=== PATIENT | male | born 1985 | race Caucasian/White ===

== ENCOUNTER 2017-02-25 23:32 | Emergency (ER) | payer OTHER ==
[2017-02-25 23:43] VITALS: RESP 18
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
--- NOTE | 2017-02-26 00:40 | XR ---
EXAM: XR Right Shoulder Complete, 2 or More Views CLINICAL HISTORY: Reason: Pain TECHNIQUE: Two or more views of the right shoulder. COMPARISON: None. FINDINGS: Bones/joints: Unremarkable. No acute fracture. No dislocation. Soft tissues: Unremarkable. No calcification. IMPRESSION: Normal right shoulder x-rays.
[2017-02-26 00:59] VITALS: BP 132/61; PULSE 87; TEMP 98.2
== END 2017-02-26 00:59 | disposition home or self-care (01) ==
LOC: EC 23:32
DX: S40.011A Contusion of right shoulder, initial encounter (principal); R07.9 Chest pain, unspecified; F17.200 Nicotine dependence, unspecified, uncomplicated; Z88.8 Allergy status to other drugs, medicaments and biological substances; V47.5XXA Car driver injured in collision with fixed or stationary object in traffic accident, initial encounter; Y92.410 Unspecified street and highway as the place of occurrence of the external cause
CPT/HCPCS: 99283

== ENCOUNTER 2017-07-03 13:35 | Emergency (ER) | payer OTHER ==
[2017-07-03 13:40] VITALS: BP 121/78; PULSE 73; RESP 16; TEMP 97.8
[2017-07-03] MEDS ORDERED: PROPARACAINE 0.5% OPHTH DROPS 15 ML BTL LEFT EYE STA (13:51)
--- NOTE | 2017-07-03 14:04 | ED ---
General Adult HPI - General Chief complaint: Upper Respiratory Infection Stated complaint: Sore Throat/Eye Pain Time Seen by Provider: 07/03/17 13:44 Source: patient, RN notes reviewed Mode of arrival: ambulatory Limitations: no limitations - History of Present Illness Initial comments: This is a 32-year-old male who presents to the emergency department for evaluation of upper respiratory infection. Patient states that for the past 3 days he has had congestion, sore throat, headache and cough. He states that this morning when he awoke his left eye was crusted shut. He states that the eye has been tearing and is slightly itchy. Denies vision changes. Reports foreign body sensation but denies pain or photophobia. He states that his 2-year -old son has also been sick with upper respiratory infection. He has been taking NyQuil at night for the symptoms which has been helping. Patient states he has been coughing due to drainage in the back of his throat. He reports he had an episode of chills and nausea on night. Denies fever, chest pain , shortness of breath, abdominal pain, nausea or vomiting, constipation or diarrhea, dysuria or hematuria, numbness or tingling. - Related Data Home Medications Medication Instructions Recorded Confirmed No Known Home Medications [No 02/25/17 07/03/17 Known Home Medications] Allergies Allergy/AdvReac Type Severity Reaction Status Date / Time methylphenidate HCl Allergy Rash/Hives Verified 07/03/17 13:39 [From Ritalin] Review of Systems ROS Statement: Those systems with pertinent positive or pertinent negative responses have been documented in the HPI. ROS Other: All systems not noted in ROS Statement are negative. Past Medical History Past Medical History: Hyperlipidemia History of Any Multi-Drug Resistant Organisms: None Reported Past Surgical History: No Surgical Hx Reported Past Psychological History: No Psychological Hx Reported Smoking Status: Current every day smoker Past Alcohol Use History: Rare Past Drug Use History: None Reported General Exam - General Exam Comments Initial Comments: General: Awake and alert, well-developed; in no apparent distress. HEENT: Head atraumatic, normocephalic. Pupils are equal, round and reactive to light. Extraocular movements intact. Oropharynx moist without erythema or exudate. Left conjunctiva is mildly erythematous. On fluorescein staining, no abrasion or ulcers were identified. No crusting noted along eyelids. Bilateral maxillary and frontal sinuses are tender to palpation. Right TM unable to visualize due to cerumen impaction. Left TM is pearly without effusion. Neck: Supple. Normal ROM. Cardiovascular: Regular rate and rhythm. No murmurs, rubs or gallops. Chest symmetrical. Respiratory: Lungs clear to auscultation bilaterally. No wheezes, rales or rhonchi. Normal respiratory effort with no use of accessory muscles. Abdomen: Soft, non-tender, non-distended. No rigidity, rebound or guarding. Normal bowel sounds in all 4 quadrants. Skin: [place], warm and dry without rashes or lesions. Neurological: Alert and oriented x3. CN II-XII grossly intact. Speech is fluent and answers are appropriate. No focal neuro deficits. Psychiatric: Normal mood and affect. No overt signs of depression or anxiety noted. Limitations: no limitations Course Vital Signs 07/03/17 13:36 Temperature 97.8 F Pulse Rate 73 Respiratory 16 Rate Blood Pressure 121/78 O2 Sat by Pulse 97 Oximetry Medical Decision Making - Medical Decision Making This is a 32-year-old male who presents to the emergency department for evaluation of upper respiratory infection. Patient plans of nonproductive cough , sore throat, congestion and headache for the past 2 days. Patient awoke this morning with left eye redness, itchiness and crusting. Denies vision changes. On fluorescein staining, no abrasion or ulcer was noted. Lungs are clear to auscultation bilaterally. Oropharynx is non-erythematous and without exudate. Patient will be discharged home with antibiotic eyedrops. He is in agreement with plan and voices understanding. All questions were answered. Disposition Clinical Impression: Upper respiratory infection, Conjunctivitis Disposition: HOME SELF-CARE Condition: Good Instructions: Upper Respiratory Infection (ED), Conjunctivitis (ED), Tobramycin (Into the eye) Additional Instructions: Please instill 1-2 drops in affected eye every 4 hours for 5 days. Please follow up with primary care provider within 1-2 days. Return to emergency department if symptoms should worsen or any concerns arise. Referrals: Klever Boyer DO [Primary Care Provider] - 1-2 days Time of Disposition: 14:12
[2017-07-03] MEDS ORDERED: TOBRAMYCIN 0.3% OPHTH DROPS 5 ML BTL LEFT EYE STA (14:07)
== END 2017-07-03 14:22 | disposition home or self-care (01) ==
LOC: EC 13:35
DX: J06.9 Acute upper respiratory infection, unspecified (principal); H10.9 Unspecified conjunctivitis; F17.200 Nicotine dependence, unspecified, uncomplicated; Z88.8 Allergy status to other drugs, medicaments and biological substances
CPT/HCPCS: 99283

== ENCOUNTER 2019-05-27 18:01 | Emergency (ER) | payer BC, OTHER ==
[2019-05-27] MEDS ORDERED: ACETAMINOPHEN TAB 500 MG TAB PO STA (18:37)
--- NOTE | 2019-05-27 18:43 | ED ---
General Adult HPI - General Chief complaint: Upper Respiratory Infection Stated complaint: FLU LIKE SYMPTOMS Time Seen by Provider: 05/27/19 18:26 Source: patient, RN notes reviewed Mode of arrival: ambulatory Limitations: no limitations - History of Present Illness Initial comments: 34-year-old male with a past medical history of hyperlipidemia who presents to the emergency department for a chief complaint of body aches. Patient states he has had body aches and chills all day. States he has a cough congestion and sore throat. Patient was unaware that he had a fever until presenting to the emergency department. Denies nausea vomiting. Denies any immunocompromised states.Patient has no other complaints at this time including shortness of robbin ath, chest pain, abdominal pain, nausea or vomiting, headache, or visual changes. - Related Data Previous Rx's Medication Instructions Recorded Ciprofloxacin HCl [Cipro] 500 mg PO BID 7 Days #14 tab 05/27/19 Allergies Allergy/AdvReac Type Severity Reaction Status Date / Time methylphenidate HCl Allergy Rash/Hives Verified 05/27/19 18:26 [From Robel] Review of Systems ROS Statement: Those systems with pertinent positive or pertinent negative responses have been documented in the HPI. ROS Other: All systems not noted in ROS Statement are negative. Past Medical History Past Medical History: Hyperlipidemia History of Any Multi-Drug Resistant Organisms: None Reported Past Surgical History: No Surgical Hx Reported Past Psychological History: No Psychological Hx Reported Smoking Status: Current every day smoker Past Alcohol Use History: Rare Past Drug Use History: None Reported General Exam Limitations: no limitations General appearance: alert, in no apparent distress Head exam: Present: atraumatic, normocephalic, normal inspection Eye exam: Present: normal appearance, PERRL, EOMI. Absent: scleral icterus, conjunctival injection, periorbital swelling ENT exam: Present: normal exam, normal oropharynx, mucous membranes moist, TM's normal bilaterally, normal external ear exam Neck exam: Present: normal inspection, full ROM. Absent: tenderness, meningismus, lymphadenopathy Respiratory exam: Present: normal lung sounds bilaterally, other (Dry cough). Absent: respiratory distress, wheezes, rales, rhonchi, stridor Cardiovascular Exam: Present: regular rate, normal rhythm, normal heart sounds. Absent: systolic murmur, diastolic murmur, rubs, gallop, clicks GI/Abdominal exam: Present: soft, normal bowel sounds. Absent: distended, tenderness, guarding, rebound, rigid Neurological exam: Present: alert Psychiatric exam: Present: normal affect, normal mood Course Vital Signs 05/27/19 05/27/19 18:25 20:28 Temperature 102.5 F H 100.7 F H Pulse Rate 91 Respiratory 16 Rate Blood Pressure 108/66 O2 Sat by Pulse 99 Oximetry Procedures - Smoking Cessation Time Spent Discussing Smoking Cessation w/Patient (Minutes): 3 Patient Acknowledges Need for Cessation: Yes Medical Decision Making - Medical Decision Making Patient is well-appearing. Vitals show a fever of 102.5. Otherwise unremarkable. Patient noted to have dry cough congestion on presentation. Influenza and strep were initially obtained which were both negative. Chest x- ray was obtained which showed a normal chest. Dr. Loza recommended urinalysis which showed 45 red blood cells, 3 white blood cells. He then recommended lab work and a CT to rule out septic stone. CT was negative. There is clearing of the right ureteral calculus compared to old exam. CBC did show a white blood cell count 14.4. Dr. Loza reevaluated patient. At this time patient's fever could be related to a sinusitis or a possible urinary tract infection with possible stone that could have been missed on CT. Therefore patient will be treated with Cipro . He was directed to monitor himself and if symptoms are not resolving he is aware to return to the emergency department. Discussed return precautions thoroughly. - Lab Data Result diagrams: 05/27/19 20:35 05/27/19 20:35 Lab Results 05/27/19 05/27/19 05/27/19 Range/Units 18:35 18:39 19:32 WBC (3.8-10.6) k/uL RBC (4.30-5.90) m/uL Hgb (13.0-17.5) gm/dL Hct (39.0-53.0) % MCV (80.0-100.0) fL MCH (25.0-35.0) pg MCHC (31.0-37.0) g/dL RDW (11.5-15.5) % Plt Count (150-450) k/uL Neutrophils % % Lymphocytes % % Monocytes % % Eosinophils % % Basophils % % Neutrophils # (1.3-7.7) k/uL Lymphocytes # (1.0-4.8) k/uL Monocytes # (0-1.0) k/uL Eosinophils # (0-0.7) k/uL Basophils # (0-0.2) k/uL Hyperchromasia Sodium (137-145) mmol/L Potassium (3.5-5.1) mmol/L Chloride (98-107) mmol/L Carbon Dioxide (22-30) mmol/L Anion Gap mmol/L BUN (9-20) mg/dL Creatinine (0.66-1.25) mg/dL Est GFR (CKD-EPI)AfAm (>60 ml/min/1.73 sqM) Est GFR (CKD-EPI)NonAf (>60 ml/min/1.73 sqM) Glucose (74-99) mg/dL Plasma Lactic Acid Tino (0.7-2.0) mmol/L Calcium (8.4-10.2) mg/dL Total Bilirubin (0.2-1.3) mg/dL AST (17-59) U/L ALT (21-72) U/L Alkaline Phosphatase (38-126) U/L Total Protein (6.3-8.2) g/dL Albumin (3.5-5.0) g/dL Urine Color Yellow Urine Appearance Clear (Clear) Urine pH 6.5 (5.0-8.0) Ur Specific [place] 1.029 (1.001-1.035) Urine Protein 1+ H (Negative) Urine Glucose (UA) Negative (Negative) Urine Ketones 1+ H (Negative) Urine Blood Small H (Negative) Urine Nitrite Negative (Negative) Urine Bilirubin Negative (Negative) Urine Urobilinogen 3.0 (<2.0) mg/dL Ur Leukocyte Esterase Negative (Negative) Urine RBC 45 H (0-5) /hpf Urine WBC 3 (0-5) /hpf Urine Mucus Many H (None) /hpf Heterophile Antibody (Negative) Influenza Type A RNA Not Detected (Not Detectd) Influenza Type B (PCR) Not Detected (Not Detectd) Group A Strep Rapid Negative (Negative) 05/27/19 05/27/19 05/27/19 Range/Units 20:35 20:35 20:35 WBC 14.4 H (3.8-10.6) k/uL RBC 4.70 (4.30-5.90) m/uL Hgb 15.0 (13.0-17.5) gm/dL Hct 40.3 (39.0-53.0) % MCV 85.8 (80.0-100.0) fL MCH 32.0 (25.0-35.0) pg MCHC 37.3 H (31.0-37.0) g/dL RDW 12.1 (11.5-15.5) % Plt Count 222 (150-450) k/uL Neutrophils % 82 % Lymphocytes % 10 % Monocytes % 6 % Eosinophils % 0 % Basophils % 0 % Neutrophils # 11.9 H (1.3-7.7) k/uL Lymphocytes # 1.5 (1.0-4.8) k/uL Monocytes # 0.9 (0-1.0) k/uL Eosinophils # 0.0 (0-0.7) k/uL Basophils # 0.1 (0-0.2) k/uL Hyperchromasia Slight Sodium 139 (137-145) mmol/L Potassium 3.6 (3.5-5.1) mmol/L Chloride 106 (98-107) mmol/L Carbon Dioxide 23 (22-30) mmol/L Anion Gap 10 mmol/L BUN 17 (9-20) mg/dL Creatinine 1.02 (0.66-1.25) mg/dL Est GFR (CKD-EPI)AfAm >90 (>60 ml/min/1.73 sqM) Est GFR (CKD-EPI)NonAf >90 (>60 ml/min/1.73 sqM) Glucose 108 H (74-99) mg/dL Plasma Lactic Acid Tino (0.7-2.0) mmol/L Calcium 10.2 (8.4-10.2) mg/dL Total Bilirubin 0.8 (0.2-1.3) mg/dL AST 19 (17-59) U/L ALT 38 (21-72) U/L Alkaline Phosphatase 102 (38-126) U/L Total Protein 7.7 (6.3-8.2) g/dL Albumin 4.6 (3.5-5.0) g/dL Urine Color Urine Appearance (Clear) Urine pH (5.0-8.0) Ur Specific [place] (1.001-1.035) Urine Protein (Negative) Urine Glucose (UA) (Negative) Urine Ketones (Negative) Urine Blood (Negative) Urine Nitrite (Negative) Urine Bilirubin (Negative) Urine Urobilinogen (<2.0) mg/dL Ur Leukocyte Esterase (Negative) Urine RBC (0-5) /hpf Urine WBC (0-5) /hpf Urine Mucus (None) /hpf Heterophile Antibody Negative (Negative) Influenza Type A RNA (Not Detectd) Influenza Type B (PCR) (Not Detectd) Group A Strep Rapid (Negative) 05/27/19 Range/Units 20:35 WBC (3.8-10.6) k/uL RBC (4.30-5.90) m/uL Hgb (13.0-17.5) gm/dL Hct (39.0-53.0) % MCV (80.0-100.0) fL MCH (25.0-35.0) pg MCHC (31.0-37.0) g/dL RDW (11.5-15.5) % Plt Count (150-450) k/uL Neutrophils % % Lymphocytes % % Monocytes % % Eosinophils % % Basophils % % Neutrophils # (1.3-7.7) k/uL Lymphocytes # (1.0-4.8) k/uL Monocytes # (0-1.0) k/uL Eosinophils # (0-0.7) k/uL Basophils # (0-0.2) k/uL Hyperchromasia Sodium (137-145) mmol/L Potassium (3.5-5.1) mmol/L Chloride (98-107) mmol/L Carbon Dioxide (22-30) mmol/L Anion Gap mmol/L BUN (9-20) mg/dL Creatinine (0.66-1.25) mg/dL Est GFR (CKD-EPI)AfAm (>60 ml/min/1.73 sqM) Est GFR (CKD-EPI)NonAf (>60 ml/min/1.73 sqM) Glucose (74-99) mg/dL Plasma Lactic Acid Tino 0.9 (0.7-2.0) mmol/L Calcium (8.4-10.2) mg/dL Total Bilirubin (0.2-1.3) mg/dL AST (17-59) U/L ALT (21-72) U/L Alkaline Phosphatase (38-126) U/L Total Protein (6.3-8.2) g/dL Albumin (3.5-5.0) g/dL Urine Color Urine Appearance (Clear) Urine pH (5.0-8.0) Ur Specific [place] (1.001-1.035) Urine Protein (Negative) Urine Glucose (UA) (Negative) Urine Ketones (Negative) Urine Blood (Negative) Urine Nitrite (Negative) Urine Bilirubin (Negative) Urine Urobilinogen (<2.0) mg/dL Ur Leukocyte Esterase (Negative) Urine RBC (0-5) /hpf Urine WBC (0-5) /hpf Urine Mucus (None) /hpf Heterophile Antibody (Negative) Influenza Type A RNA (Not Detectd) Influenza Type B (PCR) (Not Detectd) Group A Strep Rapid (Negative) Disposition Clinical Impression: Fever, Hematuria, Sinusitis Disposition: HOME SELF-CARE Condition: Good Instructions (If sedation given, give patient instructions): Upper Respiratory Infection (ED), Fever in Adults (ED) Additional Instructions: Please take Motrin and Tylenol for fever. Take antibiotic as directed. This was prescribed to to [facility] on . Monitor for any worsening symptoms and return to the emergency Department if these occur. Return if symptoms do not resolve in the next few days. Follow-up with primary care in 1-2 days. Prescriptions: Ciprofloxacin HCl [Cipro] 500 mg PO BID 7 Days #14 tab Is patient prescribed a controlled substance at d/c from ED?: No Referrals: Klever Boyer DO [Primary Care Provider] - 1-2 days Time of Disposition: 22:35
--- NOTE | 2019-05-27 19:04 | XR ---
EXAMINATION TYPE: XR chest 2V DATE OF EXAM: 05/27/2019 COMPARISON: 08/06/2016 HISTORY: Cough and congestion TECHNIQUE: Frontal and lateral views of the chest are obtained. FINDINGS: Heart and mediastinum are normal. Lungs are clear. Diaphragm is normal. Bony thorax appear s normal. IMPRESSION: Normal chest. No change.
[2019-05-27 19:51] LABS: Appearance,Urine Clear (Clear); Bilirubin,Urine Negative (Negative); Blood,Urine Small (Negative); Color,Urine Yellow; Glucose,Urine (UA) Negative (Negative); Ketones,Urine 1+ (Negative); Leukocyte Esterase,Urine Negative (Negative); Mucus,Urine Many /hpf; Nitrite,Urine Negative (Negative); PH, Urine 6.5 (5.0-8.0); Protein,Urine 1+ (Negative); RBC,Urine 45 /hpf (0-5); Specific Gravity,Urine 1.029 (1.001-1.035); WBC,Urine 3 /hpf (0-5)
[2019-05-27] MEDS ORDERED: SODIUM CHLORIDE 0.9% 1,000 ML IV STA (20:15)
--- NOTE | 2019-05-27 21:01 | CT ---
EXAMINATION TYPE: CT abdomen pelvis wo con DATE OF EXAM: 05/27/2019 COMPARISON: 02/04/2010 HISTORY: Fever and hematuria. CT DLP: 582.3 mGycm Automated exposure control for dose reduction was used. TECHNIQUE: Helical acquisition of images was performed from the lung bases through the pelvis. FINDINGS: Lung bases are clear. There is no pleural effusion. Heart size is normal. There are small calcified g ranuloma in the spleen. Liver appears normal. Gallbladder appears normal. Bile ducts are not dilated. Pancreas appears normal. Stomach has normal size and contour. There is no adrenal mass. Kidneys have normal size and contour. There is no hydronephrosis. Ureters a re not dilated. The appendix appears normal. There is no retroperitoneal adenopathy. Bladder distends smoothly. There is no inguinal hernia. There is no sign of a renal calculus. There is no free fluid in the pelvis. There is no mesenteric edema. There is no ascites or free air. There is no sign of a bowel obstruction. Lumbar vertebra have fairly normal spacing and alignment. Po sterior elements are intact. Bony pelvis is intact. IMPRESSION: NEGATIVE CT SCAN ABDOMEN AND PELVIS. THERE IS CLEARING OF THE RIGHT URETERAL CALCULUS COMPARED TO OLD EXAM.
[2019-05-27 21:06] LABS: ALT 38 U/L (21-72); AST 19 U/L (17-59); African American GFR (CKD) >90 (>60 ml/min/1.73 sqM); Albumin 4.6 g/dL (3.5-5.0); Alkaline Phosphatase 102 U/L (38-126); Anion Gap 10 mmol/L; Blood Urea Nitrogen 17 mg/dL (9-20); Calcium 10.2 mg/dL (8.4-10.2); Carbon Dioxide 23 mmol/L (22-30); Chloride 106 mmol/L (98-107); Glucose 108 mg/dL (74-99); Potassium 3.6 mmol/L (3.5-5.1); Sodium 139 mmol/L (137-145); Total Bilirubin 0.8 mg/dL (0.2-1.3); Total Protein 7.7 g/dL (6.3-8.2)
[2019-05-27 21:34] LABS: Basophils # (A) 0.1 k/uL (0-0.2); Basophils % (A) 0 %; Eosinophils % (A) 0 %; HCT 40.3 % (39.0-53.0); Hyperchromasia Slight; Lymphocytes # (A) 1.5 k/uL (1.0-4.8); Lymphocytes % (A) 10 %; MCHC 37.3 g/dL (31.0-37.0); MCV 85.8 fL (80.0-100.0); Mean Platelet Volume 6.8; Monocytes # (A) 0.9 k/uL (0-1.0); Monocytes % (A) 6 %; Neutrophils # (A) 11.9 k/uL (1.3-7.7); Neutrophils % (A) 82 %; Platelet Count 222 k/uL (150-450); RDW 12.1 % (11.5-15.5); WBC 14.4 k/uL (3.8-10.6)
[2019-05-27] MEDS ORDERED: CIPROFLOXACIN HCL 500 MG TAB PO STA (22:33)
[2019-05-27 23:28] VITALS: BP 109/62; PULSE 72; RESP 18; TEMP 98
== END 2019-05-27 23:30 | disposition home or self-care (01) ==
LOC: EC 18:01
DX: J32.9 Chronic sinusitis, unspecified (principal); R31.9 Hematuria, unspecified; N20.1 Calculus of ureter; Z71.6 Tobacco abuse counseling; E78.5 Hyperlipidemia, unspecified; F17.200 Nicotine dependence, unspecified, uncomplicated; Z88.8 Allergy status to other drugs, medicaments and biological substances
CPT/HCPCS: 36415; 71046; 74176; 80053; 81001; 83605; 85025; 86308; 87081; 87430; 87502; 96360; 99284

== ENCOUNTER 2021-08-30 07:37 | Emergency (ER) | payer BC, OTHER ==
[2021-08-30 07:42] VITALS: PULSE 95; TEMP 99.6
--- NOTE | 2021-08-30 08:52 | ED ---
General Adult HPI - General Chief complaint: Upper Respiratory Infection Stated complaint: headache/weak Source: patient, RN notes reviewed Mode of arrival: ambulatory Limitations: no limitations - History of Present Illness Initial comments: 36 year old male with a past medical history of hyperlipidemia presents to the emergency room for a chief complaint of cold symptoms. Patient states he started to feel ill this morning. States he is a cough headache and fatigue. Denies shortness of breath or chest pain. Patient is not vaccinated for COVID- 19.Patient has no other complaints at this time including shortness of breath, chest pain, abdominal pain, nausea or vomiting, headache, or visual changes. - Related Data Previous Rx's Medication Instructions Recorded Ciprofloxacin HCl [Cipro] 500 mg PO BID 7 Days #14 tab 05/27/19 Benzonatate [Tessalon Perles] 200 mg PO Q8H PRN #15 capsule 08/30/21 guaiFENesin [Mucinex] 600 mg PO Q12HR PRN #20 tab 08/30/21 Allergies Allergy/AdvReac Type Severity Reaction Status Date / Time methylphenidate HCl Allergy Rash/Hives Verified 08/30/21 07:42 [From Ritalin] Review of Systems ROS Statement: Those systems with pertinent positive or pertinent negative responses have been documented in the HPI. ROS Other: All systems not noted in ROS Statement are negative. Past Medical History Past Medical History: Hyperlipidemia History of Any Multi-Drug Resistant Organisms: None Reported Past Surgical History: No Surgical Hx Reported Past Psychological History: No Psychological Hx Reported Smoking Status: Never smoker Past Alcohol Use History: Rare Past Drug Use History: None Reported General Exam Limitations: no limitations General appearance: alert, in no apparent distress Head exam: Present: atraumatic Eye exam: Present: normal appearance, PERRL, EOMI. Absent: scleral icterus, conjunctival injection ENT exam: Present: normal exam, mucous membranes moist Neck exam: Present: normal inspection, full ROM. Absent: tenderness Respiratory exam: Present: normal lung sounds bilaterally. Absent: respiratory distress, wheezes Cardiovascular Exam: Present: regular rate, normal rhythm, normal heart sounds GI/Abdominal exam: Present: soft, normal bowel sounds. Absent: distended, tenderness Neurological exam: Present: alert Course Vital Signs 08/30/21 07:39 Temperature 99.6 F Pulse Rate 95 Respiratory 20 Rate Blood Pressure 121/71 O2 Sat by Pulse 96 Oximetry Medical Decision Making - Medical Decision Making Vitals are stable. Patient is COVID-19 positive. I did offer and encourage antibody infusion given patient has hyperlipidemia and is not vaccinated. However he refuses and adamantly does not want this. Therefore patient will be discharged home to follow up with primary care. Will return here for any worsening symptoms. - Lab Data Lab Results 08/30/21 Range/Units 08:06 Coronavirus (PCR) Detected A (Not Detectd) Disposition Clinical Impression: COVID-19 Disposition: HOME SELF-CARE Condition: Good Instructions (If sedation given, give patient instructions): Coronavirus Disease 2019 (COVID-19) Additional Instructions: Please take Motrin and Tylenol for fever. Take [id number] vitamin C, D, and zinc. Take [id number] cold and flu medications. Drink plenty of fluids. Follow up with your doctor. Return to the emergency room for any worsening symptoms such as shortness of breath Prescriptions: guaiFENesin [Mucinex] 600 mg PO Q12HR PRN #20 tab PRN Reason: Congestion Benzonatate [Tessalon Perles] 200 mg PO Q8H PRN #15 capsule PRN Reason: Cough Is patient prescribed a controlled substance at d/c from ED?: No Referrals: Nadege Howe MD [STAFF PHYSICIAN] - 1-2 days Time of Disposition: 08:47
[2021-08-30 09:13] VITALS: BP 130/88; RESP 18
== END 2021-08-30 09:13 | disposition home or self-care (01) ==
LOC: EC 07:37
DX: U07.1 COVID-19 (principal); Z88.8 Allergy status to other drugs, medicaments and biological substances
CPT/HCPCS: 87635; 99284